=== PATIENT | male | born 1960 | race Two or more races ===

== ENCOUNTER 2017-11-29 15:31 | Outpatient (CLI) | payer OTHER | END 2017-11-29 16:57 | disposition home or self-care (01) | LOC: EKG 15:31 | DX: R10.9 Unspecified abdominal pain (principal) ==

== ENCOUNTER 2023-03-06 09:30 | Emergency (ER) | payer OTHER ==
[~2023-03-06] VITALS: Ht 172.7 cm; Wt 69.9 kg
== END 2023-03-06 13:07 | disposition home or self-care (01) ==
LOC: ER 09:30
DX: N39.0 Urinary tract infection, site not specified (principal); R31.9 Hematuria, unspecified; N40.0 Benign prostatic hyperplasia without lower urinary tract symptoms; Z20.822 Contact with and (suspected) exposure to COVID-19

== ENCOUNTER 2023-06-09 07:19 | Emergency (ER) | payer OTHER ==
[~2023-06-09] VITALS: Ht 172.7 cm; Wt 69.4 kg
== END 2023-06-09 09:09 | disposition home or self-care (01) ==
LOC: ER 07:19
DX: H53.2 Diplopia (principal)

== ENCOUNTER → 2024-09-12 | Emergency (ER) | payer OTHER ==
[~2024-09-12] VITALS: Ht 172.7 cm; Wt 72.6 kg
[~2024-09-12] MED LIST: TADALAFIL5 MG
[2024-09-12 08:58] LABS: HEMATOCRIT 40.9 % (39.0-48.0); HEMOGLOBIN 13.9 g/dL (13-16.00); MEAN CELL VOLUME 90.7 fL (80.0-100.00); MEAN CORPUSCULAR HEMOGLOBIN 30.8 pg (27.00-32.0); PLATELET COUNT 235 K/uL (150-450); RED BLOOD COUNT 4.51 M/uL (4.00-6.00); RED CELL DISTRIBUTION WIDTH 13.7 % (11.5-14.5)
[2024-09-12 09:16] LABS: CALCIUM 10.4 mg/dL (8.5-10.1); CREATININE SERUM 0.88 mg/dL (0.70-1.30); GFR 86.91; POTASSIUM 3.47 mEq/L (3.5-5.1)
[2024-09-12 09:52] LABS: URINE APPEARANCE Cloudy; URINE BILIRRUBIN Negative (NEGATIVE); URINE BLOOD Trace; URINE COLOR Dark Yellow; URINE GLUCOSE Negative (NEGATIVE); URINE KETONE Trace (NEGATIVE); URINE LEUKOCYTE Moderate; URINE NITRATE Positive; URINE PROTEIN 30 (NEGATIVE)
[2024-09-12 09:54] LABS: URINE RBC 11.7 uL (0.0-20.8); URINE WBC 1064.1 uL (0.0-23.2)
[2024-09-12 10:32] LABS: URINE BACTERIA > 9821.5 uL (0.0-1933); URINE CAST 0.29 uL (0.0-1.40)
== END | disposition home or self-care (01) ==
LOC: ER 06:35
PROVIDERS: General Practice
DX: N39.0 Urinary tract infection, site not specified (principal); R30.0 Dysuria; B96.29 Other Escherichia coli [E. coli] as the cause of diseases classified elsewhere; Z16.11 Resistance to penicillins